=== PATIENT | female | born 1955 | race Caucasian/White ===

== ENCOUNTER → 2017-04-02 | Outpatient (CLI) | payer MEDICAID, OTHER ==
[~2017-04-02] MED LIST: FLUO10CA13 PO; LAMO25TA PO; LEVO150T5 PO; METO25TA35 PO; OMEP-110 PO; QUET100T PO; SERT100T5 PO; SIMV20TA3 PO; TRAZ150T68 PO
== END | disposition home or self-care (01) ==
LOC: CFH 13:26 → EDSTATUS 14:00
PROVIDERS: ATTEND Nurse Practitioner Critical Care Medicine
DX: M41.86 Other forms of scoliosis, lumbar region (principal); M51.25 Other intervertebral disc displacement, thoracolumbar region; M43.17 Spondylolisthesis, lumbosacral region; M48.06 Spinal stenosis, lumbar region; Z98.890 Other specified postprocedural states; Z98.1 Arthrodesis status
CPT/HCPCS: 72110; 72148

== ENCOUNTER → 2017-07-18 | Outpatient (CLI) | payer MEDICAID ==
[~2017-07-18] MED LIST changes: +TRAZ150T62 PO; -TRAZ150T68 PO
== END | disposition home or self-care (01) ==
LOC: CFH 11:18
PROVIDERS: ATTEND Neurological Surgery
DX: M43.16 Spondylolisthesis, lumbar region (principal); M47.897 Other spondylosis, lumbosacral region; Z98.890 Other specified postprocedural states; Z98.1 Arthrodesis status
CPT/HCPCS: 72110

== ENCOUNTER → 2017-10-16 | Outpatient (CLI) | payer MEDICAID | END | disposition home or self-care (01) | LOC: CFH 11:42 | PROVIDERS: ATTEND Nurse Practitioner Critical Care Medicine | DX: S33.140A Subluxation of L4/L5 lumbar vertebra, initial encounter (principal); M47.896 Other spondylosis, lumbar region; Z98.1 Arthrodesis status; Z98.890 Other specified postprocedural states; X58.XXXA Exposure to other specified factors, initial encounter; Y93.89 Activity, other specified; Y92.89 Other specified places as the place of occurrence of the external cause; Y99.8 Other external cause status | CPT/HCPCS: 72110 ==